=== PATIENT | female | born 1995 | race Caucasian/White ===

== ENCOUNTER 2016-09-30 23:05 | Outpatient (CLI) | payer OTHER ==
[~2016-09-30] VITALS: Ht 154.9 cm; Wt 89.0 kg
[~2016-09-30 23:05] MED LIST: FERR-18 PO; PREN-39 PO
[2016-09-30 23:37] VITALS: BP 110/62; PULSE 94; RESP 18; Ht 154.9 cm; Wt 89.0 kg
[2016-10-01 00:42] LABS: ADD UMIC YES; UR ASCORBIC ACID NEGATIVE (NEGATIVE); UR BACTERIA FEW /HPF (NONE SEEN); UR BILIRUBIN (Dip) NEGATIVE (NEGATIVE); UR BLOOD (Dip) NEGATIVE (NEGATIVE); UR CLARITY SLIGHTLY CLOUDY (CLEAR); UR COLOR YELLOW (YELLOW); UR GLUCOSE (Dip) NEGATIVE (NEGATIVE); UR KETONES (Dip) TRACE mg/dL (NEGATIVE); UR LEUKOCYTE ESTERASE (Dip) 2+ Leu/ul (NEGATIVE); UR MUCUS MODERATE /HPF (NONE SEEN); UR NITRITE (Dip) NEGATIVE (NEGATIVE); UR RBC 4 /HPF (0-5); UR SPECIFIC GRAVITY (Dip) 1.025 (1.003-1.030); UR SQUAMOUS EPITHELIAL CELL FEW /HPF (FEW); UR TOTAL PROTEIN (Dip) 1+ mg/dl (NEGATIVE); UR UROBILINOGEN (Dip) NEGATIVE (NEGATIVE)
--- NOTE | 2016-10-01 01:17 | PN ---
Triage Information Date/Time Weeks of Gestation 34+ weeks : 4 Para: 2 Diabetes: none Hypertention: none Objective Vital Signs Date Time Temp Pulse Resp B/P Pulse Ox O2 Delivery O2 Flow Rate FiO2 09/30/16 23:37 98.5 94 18 110/62 Room Air Heart Rate: 140's Contractions: < 5 Minutes Apart Exam Cervix Fingertip and on re-exam no cervical change Results/Medications Results 24 hrs Laboratory Tests Test 10/01/16 00:01 Urine Color YELLOW Urine Clarity SLIGHTLY CLOUDY A Urine pH 5.0 Urine Specific Fowler 1.025 Urine Ketones TRACE A Urine Nitrite NEGATIVE Urine Bilirubin NEGATIVE Urine Urobilinogen NEGATIVE Urine Leukocyte Esterase 2+ H Urine Microscopic RBC 4 Urine Microscopic WBC 6 H Urine Squamous Epithelial Cells FEW Urine Bacteria FEW A Urine Mucus MODERATE Urine Hemoglobin NEGATIVE Urine Glucose NEGATIVE Urine Total Protein 1+ H Assessment/Plan Mild contractions noted. No sign of labor. D/C home. Follow up in clinic in AM and have urine culture done in the clinic with Dr Palma. SILVIA LAZO MD Oct 01, 2016 01:16
--- NOTE | 2016-10-01 02:01 | TRIAGE ---
OB Triage Datetime Report Generated by CPN: 10/01/2016 02:01 Datetime: 10/01/2016 01:07 Stage of : OB Triage Vaginal Exam Dilatation (cms): 0.5 Exam By: DR DELSHAD Vaginal Bleeding: None Cervix, Consistency: Firm Cervix, Position: Posterior Datetime: 10/01/2016 01:00 Labor Evaluation Frequency: 3-4 Monitor Mode: External Duration (sec)2399: 60 Quality: Mild Pattern: Normal: <= 5 Contractions in 10 Minutes Resting Tone [place]: Relaxed Heart Rate FHR Baseline Rate: 155 Monitor Mode: External US FHR Baseline Changes: No Baseline Change Variability: Moderate 6-25 bpm Accelerations: 15X15 Decelerations: None Category: Category I Datetime: 10/01/2016 00:00 Labor Evaluation Frequency: 1-4 Monitor Mode: External Duration (sec)2399: 60-100 Quality: Mild Pattern: Normal: <= 5 Contractions in 10 Minutes Resting Tone [place]: Relaxed Heart Rate FHR Baseline Rate: 145 Monitor Mode: External US FHR Baseline Changes: No Baseline Change Variability: Moderate 6-25 bpm Accelerations: 15X15 Decelerations: None Category: Category I Datetime: 09/30/2016 23:58 Vaginal Exam Dilatation (cms): 0.5 Exam By: DR DELSHAD Vaginal Bleeding: None Cervix, Consistency: Firm Cervix, Position: Posterior Datetime: 09/30/2016 23:30 EGA: 34.2 Datetime: 09/30/2016 23:26 Vaginal Exam Dilatation (cms): 0.0 Effacement (%): 0 Station: -3 Exam By: Ryne GARCIA RN Vaginal Bleeding: None Cervix, Consistency: Firm Cervix, Position: Posterior Datetime: 09/30/2016 23:10 Stage of : OB Triage Assessment Type: Triage Time of Arrival: 09/30/2016 23:01 Arrived By: Wheelchair Arrived From: Home Chief Complaint: BACK PAIN VAGINAL PRESSURE Movement: Present Contractions: Irregular Time Contractions Began: 09/30/2016 17:00 Rupture of Membranes: Denies Vaginal Bleeding: None Vaginal Discharge: Denies Recent Sexual Intercouse: Denies Abdominal Trauma: Not Applicable Patient Complaints: None Time Provider Notified: 09/30/2016 23:45 Provider Notified: CHACHO Initial Plan: CALL RENY BUTTS Maternal Assessment Level of Consciousness: Fully Conscious DTR's/Clonus: DTRs 2+; No Clonus Headache: Denies Blurred Vision: No Respiratory Effort: Unlabored; Regular Rhythm; Equal Expansion Breath Sounds, Left: Clear and Equal Breath Sounds, Right: Clear and Equal Nausea/Vomiting: Denies RUQ Epigastric Pain: Denies Lower Extremities Edema: Bilateral Lower Extremities Degree: 1+ Upper Extremities Edema: None Degree: None Facial Edema: None Temperature Route: Oral Fall Risk Assessment History of Falling: (0) No Secondary Diagnosis: (0) No Ambulatory Aid: (0) Bedrest/Nurse Assist IV Therapy: (0) No Gait: (0) Normal/Bedrest/Immobile Mental Status: (0) Oriented to Own Ability Fall Score: 0 Fall Risk Score Definition: No Risk: No action required Monitor Mode: External Monitor Mode: External US Pain Assessment Pain Scale: 5 Pain Presence: Intermittent Pain Type: Contraction Pain Location: Abdomen; Back
== END 2016-10-01 01:07 | disposition home or self-care (01) ==
LOC: OBT 23:05 → L-D 23:05 → OBT 10-01 01:07
PROVIDERS: ATTEND Obstetrics & Gynecology
DX: O26.893 Other specified pregnancy related conditions, third trimester (principal); Z3A.34 34 weeks gestation of pregnancy
CPT/HCPCS: 81001; Z7500; G0463

== ENCOUNTER 2016-11-03 22:03 | Outpatient (CLI) | payer OTHER ==
[~2016-11-03] VITALS: Ht 157.5 cm; Wt 93.2 kg
[2016-11-03 22:32] VITALS: BP 124/72; PULSE 18; RESP 18; Ht 157.5 cm; Wt 93.2 kg
[2016-11-03 23:08] LABS: URINE BLOOD (Dip) POC Negative (NEGATIVE)
--- NOTE | 2016-11-04 00:43 | PN ---
Triage Information Date/Time November 04, 2016 Reason for visit: Uterine contractions Weeks of Gestation 39w 2d /Para 4/2 Diabetes: none Hypertention: none Additional information Pt reports pelvic pressure and back pain tonight. Her last baby was 3 years ago and she had a 12 hour labor.No bleeding or leaking. PMHx: none. PSHx: none. NKDA. Objective Vital Signs Date Time Temp Pulse Resp B/P Pulse Ox O2 Delivery O2 Flow Rate FiO2 11/03/16 22:32 97.8 18 18 124/72 Room Air Heart Rate: 130's Heart Rate Comments Accels to 160 bpm. No decels. Contractions: 6-10 Minutes Apart Exam 50%/FT/-3. Results/Medications Results 24 hrs Laboratory Tests Test 11/03/16 23:16 Bedside Urine pH (LAB) 6.5 Bedside Urine Protein (LAB) Negative Bedside Urine Glucose (UA) Negative Bedside Urine Ketones (LAB) Negative Bedside Urine Blood Negative Bedside Urine Nitrite (LAB) Negative Bedside Urine Leukocyte Esterase (L 1+ H Disposition: Discharge Assessment/Plan A: IUP at 39w 2d. False labor. P: D/C home. Labor precautions reviewed. MAMTA LIRA MD Nov 04, 2016 00:43
== END 2016-11-04 00:51 | disposition home or self-care (01) ==
LOC: OBT 22:03 → L-D 22:04 → OBT 11-04 00:51
PROVIDERS: ATTEND Obstetrics & Gynecology
DX: O62.9 Abnormality of forces of labor, unspecified (principal); Z3A.39 39 weeks gestation of pregnancy
CPT/HCPCS: 81003

== ENCOUNTER 2016-11-07 11:14 | Inpatient (IN) | payer OTHER ==
[~2016-11-07] VITALS: Ht 157.5 cm; Wt 92.0 kg
[2016-11-07 12:06] VITALS: BP 103/64; PULSE 95; RESP 18; Ht 157.5 cm; Wt 92.0 kg
--- NOTE | 2016-11-07 13:10 | RADRPT ---
PROCEDURE: OB ultrasound for biophysical profile CLINICAL INDICATION: Contractions TECHNIQUE: Multiple sonographic images of the pelvis were obtained. Transabdominal views of the g ravid uterus are available for review. The images were reviewed on a PACS workstation. COMPARISON: None FINDINGS: breathing movement = 2/2 tone = 2/2 motion = 2/2 RUPINDER = 2/2 RUPINDER = 9.1 cm Single live intrauterine with cardiac activity of 136 bpm. position is cephal ic. The placenta is anterior. IMPRESSION: 1. Single live intrauterine gestation. 2. Biophysical profile = 8/8. 3. RUPINDER = 9.1 cm. RPTAT: HH .Kay Castillo MD, MD Date Time Electronically viewed and signed by .Kay Castillo MD, on 11/07/2016 13:10 .G/
--- NOTE | 2016-11-07 13:12 | RADRPT ---
PROCEDURE: US OB. CLINICAL INDICATION: Contractions TECHNIQUE: Multiple sonographic images of the pelvis were obtained. Transabdominal imaging only w as performed. The images were reviewed on a PACS workstation. COMPARISON: OB ultrasound dated 03/2016 FINDINGS: There is a single live intrauterine gestation. Cardiac activity is present with 137 beats per minut e. position is cephalic. Measurements were made in order to determine age. The results are as follows: BPD = 8.86 cm HC = 32.47 cm AC = 35.28 cm FL = 7.04 cm. Estimated gestational age of approximately 37 weeks 0 days. The estimated date of delivery is 11/28/2016. The EFW = 3312 g, 28.6 %ile. The placenta is anterior. There is no evidence for an abruption or placenta previa. There are no adnexal masses. IMPRESSION: 1. Single live intrauterine gestation of approximately 37 weeks 0 days, by ultrasound criteria. 2. The estimated date of delivery is 11/28/2016. 3. The estimated weight is 3312 g, 28.6 %ile. RPTAT: HH .Kay Castillo MD, Date Time Electronically viewed and signed by .Kay Castillo MD, on 11/07/2016 13:12 .G/
[2016-11-07 15:49] LABS: ADD UMIC YES; UR ASCORBIC ACID NEGATIVE (NEGATIVE); UR BACTERIA FEW /HPF (NONE SEEN); UR BILIRUBIN (Dip) NEGATIVE (NEGATIVE); UR BLOOD (Dip) NEGATIVE (NEGATIVE); UR CLARITY CLEAR (CLEAR); UR COLOR YELLOW (YELLOW); UR GLUCOSE (Dip) NEGATIVE (NEGATIVE); UR KETONES (Dip) NEGATIVE (NEGATIVE); UR LEUKOCYTE ESTERASE (Dip) 3+ Leu/ul (NEGATIVE); UR MUCUS FEW /HPF (NONE SEEN); UR NITRITE (Dip) NEGATIVE (NEGATIVE); UR RBC 0 /HPF (0-5); UR SPECIFIC GRAVITY (Dip) 1.018 (1.003-1.030); UR SQUAMOUS EPITHELIAL CELL FEW /HPF (FEW); UR TOTAL PROTEIN (Dip) NEGATIVE (NEGATIVE); UR UROBILINOGEN (Dip) NEGATIVE (NEGATIVE)
[2016-11-07] MEDS ORDERED: OXYTOCIN 30 UNITS/LR 500 ML IV PRN (17:00)
[2016-11-07] MEDS ORDERED: OXYTOCIN 30 UNITS/LR 500 ML IV SCH ×2 (17:00)
[2016-11-07] MEDS ORDERED: METHYLERGONOVINE 0.2 MG INJ IM PRN (17:00)
[2016-11-07] MEDS ORDERED: MISOPROSTOL 200 MCG TAB PR PRN (17:00)
[2016-11-07] MEDS ORDERED: CARBOPROST 250 MCG INJ IM PRN (17:00)
[2016-11-07] MEDS ORDERED: BUTORPHANOL 2 MG INJ IV PRN (17:00)
[2016-11-07] MEDS ORDERED: MINERAL OIL LIGHT 10 ML VIAL TOP PRN (17:00)
[2016-11-07] MEDS ORDERED: LACTATED RINGER'S 1,000 ML IV PRN (17:00)
[2016-11-07] MEDS ORDERED: LIDOCAINE 1% (MPF) 30 ML INJ INJ PRN (17:00)
[2016-11-07 18:00] LABS: BASOPHILS % 0.2 % (0.0-2.0); EOSINOPHILS # 0.1 10^3/ul (0.0-0.5); EOSINOPHILS % 0.5 % (0.0-7.0); HEMATOCRIT 37.3 % (37.0-47.0); HEMOGLOBIN 12.6 g/dl (12.0-16.0); LYMPHOCYTES # 2.7 10^3/ul (0.8-2.9); LYMPHOCYTES % 20.5 % (15.0-51.0); MEAN CORPUSCULAR HEMOGLOBIN 29.7 pg (29.0-33.0); MEAN CORPUSCULAR HGB CONC 33.8 g/dl (32.0-37.0); MEAN PLATELET VOLUME 10.7 fl (7.4-10.4); MONOCYTE # 0.6 10^3/ul (0.3-0.9); MONOCYTES % 4.5 % (0.0-11.0); NEUTROPHILS % 73.8 % (39.0-77.0); PLATELET COUNT 284 10^3/UL (140-415); RED BLOOD COUNT 4.24 10^6/ul (4.20-5.40); RED CELL DISTRIBUTION WIDTH 13.1 % (11.5-14.5); WHITE BLOOD COUNT 13.3 10^3/ul (4.8-10.8)
[2016-11-07 18:16] LABS: INR 0.87; PROTIME 11.8 Sec (12.2-14.2); PT RATIO 0.9
[2016-11-07 18:17] LABS: PARTIAL THROMBOPLASTIN TIME 29.8 Sec (25.0-35.0)
--- NOTE | 2016-11-07 19:21 | HP ---
Date/Time of Note Date/Time of Note DATE: 11/07/16 TIME: 19:16 OB - History Hx of Present Free Text/Dictation Admitted on November 07 with chief complaint of labor pains, decreased movement, and spotting started a.m. of admission Chief Complaint: Spotting, uterine contractions, decreased movement Last Menstrual Period: Feb 13, 2016 Estimated Due Date: Nov 09, 2016 : 4 Para: 2 Care: Good Care Ultrasounds: Normal mid trimester US Obstetrical Complications: None Medical Complications: None Past Family/Social History * Past Medical, Surgical, Family and Obstetric Histories reviewed from chart. Blood Type: A+ Rubella: immune RPR/VDRL: Negative GBS Status: Negative HBsAG: Negative OB Admission Exam Vital Signs Vital Signs Vital Signs Date Time Temp Pulse Resp B/P Pulse Ox O2 Delivery O2 Flow Rate FiO2 11/07/16 12:06 98.2 95 18 103/64 Room Air Physical Exam HEENT: WNL Heart: Rhythm Normal Lungs: Clear, Equal Abdomen: WNL Extremities: Normal Reflexes: Normal Cervical Dilatation: 3cm Effacement: 75% Station: -3 Membranes: Intact Heart Rate: 130's Accelerations: Accelerations Present Decelerations: Early Decelerations Varibility: Moderate Contractions on Admission: < 5 Minutes Apart Date/Time Contractions Began: November 07 2016 Frequency of Contractions: Every for 5 minutes Duration: Over 60 seconds Intensity: Mild Last 72 hours Lab Results CBC & BMP 11/07/16 17:30 OB Assessment/Plan Other Assessment: Term gestation Liver pain Plan: Expectant Management Other plan: Proceed with spontaneous labor ELIJAH NASH MD Nov 07, 2016 19:21
[2016-11-07] MEDS: LACTATED RINGER'S 1,000 ML IV SCH ×2 (19:25→19:49)
[2016-11-07] MEDS ORDERED: FENTAnyl 2MCG/ML-ROPIV 0.2% 100 ML ONE (21:28)
[2016-11-07] MEDS ORDERED: NALOXONE (0.4 MG/ML) INJ IV PRN (22:30)
[2016-11-07] MEDS ORDERED: DIPHENHYDRAMINE 50 MG INJ IV PRN (22:30)
[2016-11-07] MEDS ORDERED: ONDANSETRON 4 MG INJ IV PRN (22:30)
[2016-11-08] MEDS: FENTAnyl 2MCG/ML-ROPIV 0.2% 100 ML BAG EPI SCH ×2 (04:31→10:30)
[2016-11-08] MEDS: LACTATED RINGER'S 1,000 ML IV SCH ×2 (06:16→10:11)
[2016-11-08] MEDS ORDERED: OXYTOCIN 30 UNITS/LR 500 ML IV SCH (10:30)
--- NOTE | 2016-11-08 14:32 | LDN ---
Date/Time of Note Date/Time of Note DATE: 11/08/16 TIME: 14:30 Delivery Summary Normal spontaneous vaginal delivery of a viable over intact perineum Weeks of Gestation 39+ Placenta Delivered: Spontaneously, Intact & Complete Meconium: none Episiotomy: No Perineal laceration: 0 Anesthesia type: Epidural Estimated blood loss: 200 Sponge & Needle done & correct: Yes All needle counts correct: Yes Any foreign bodies felt in the: No Problems: Infant Delivery Information Sex Sex: female Apgars 1 Minute: 9 5 Minute: 9 Suctioning Nose & mouth suctioned at venus: Yes Delee suction performed: No Umbilical Cord Umbilical cord with: 3 Vessels Cord presentations: no nuchal cord Mother & Baby Disposition Disposition Mom & Baby to Maternity; Good: Yes (Mother and baby were recovered in good condition) Mom transferred to: Other (Maternity) Baby to NICU: No ELIJAH NASH MD Nov 08, 2016 14:32
[2016-11-08] MEDS: LACTATED RINGER'S 1,000 ML IV* SCH ×2 (16:29→19:54)
[2016-11-08] MEDS ORDERED: OXYTOCIN 30 UNITS/LR 500 ML IV PRN (16:30)
[2016-11-08] MEDS ORDERED: WITCH HAZEL/GLYCERIN PAD PR PRN (16:30)
[2016-11-08] MEDS ORDERED: LANOLIN 7 GM TUBE TOP PRN (16:30)
[2016-11-08] MEDS ORDERED: DIBUCAINE 1% 30 GM OINT PR PRN (16:30)
[2016-11-08] MEDS ORDERED: BENZOCAINE 20% 56 ML SPRAY TOP PRN (16:30)
[2016-11-08] MEDS ORDERED: METHYLERGONOVINE 0.2 MG INJ IM PRN (16:30)
[2016-11-08] MEDS ORDERED: MISOPROSTOL 200 MCG TAB PR PRN (16:30)
[2016-11-08] MEDS ORDERED: HYDROCODONE/APAP (5/325) TAB PO PRN ×2 (16:30)
[2016-11-08] MEDS ORDERED: CARBOPROST 250 MCG INJ IM PRN (16:30)
[2016-11-08] MEDS ORDERED: ZOLPIDEM 5 MG TAB PO PRN (16:30)
[2016-11-08 17:15] VITALS: BP 132/69; PULSE 91; RESP 20
[2016-11-08] MEDS: IBUPROFEN 600 MG TAB PO SCH ×2 (17:43→23:30)
[2016-11-08] MEDS: CEPHALEXIN 500 MG CAP PO SCH ×2 (17:43→23:30)
[2016-11-08 20:00] VITALS: BP 111/63; PULSE 102; RESP 18
[2016-11-08] MEDS: MAGNESIUM HYDROXIDE 30ML CUP PO SCH (20:30)
[2016-11-08] MEDS: SENNA/DOCUSATE NA (8.6MG/50MG) TAB PO SCH (20:30)
[2016-11-09] VITALS: BP 108/65; PULSE 88; RESP 18
[2016-11-09 04:00] VITALS: BP 102/57; PULSE 85; RESP 18
[2016-11-09] MEDS: IBUPROFEN 600 MG TAB PO SCH ×3 (05:33→17:17)
[2016-11-09] MEDS: CEPHALEXIN 500 MG CAP PO SCH ×3 (05:33→17:17)
[2016-11-09 07:50] VITALS: BP 113/59; PULSE 73; RESP 16
[2016-11-09] MEDS: SENNA/DOCUSATE NA (8.6MG/50MG) TAB PO SCH ×2 (08:31→20:51)
[2016-11-09] MEDS: MAGNESIUM HYDROXIDE 30ML CUP PO SCH ×2 (08:31→20:50)
[2016-11-09 09:15] LABS: BASOPHILS % 0.2 % (0.0-2.0); EOSINOPHILS # 0.1 10^3/ul (0.0-0.5); HEMATOCRIT 32.3 % (37.0-47.0); HEMOGLOBIN 10.6 g/dl (12.0-16.0); LYMPHOCYTES # 2.8 10^3/ul (0.8-2.9); LYMPHOCYTES % 21.2 % (15.0-51.0); MEAN CORPUSCULAR HEMOGLOBIN 29.7 pg (29.0-33.0); MEAN CORPUSCULAR HGB CONC 32.8 g/dl (32.0-37.0); MEAN CORPUSCULAR VOLUME 90.5 fl (82.0-101.0); MEAN PLATELET VOLUME 10.7 fl (7.4-10.4); MONOCYTE # 0.6 10^3/ul (0.3-0.9); MONOCYTES % 4.7 % (0.0-11.0); NEUTROPHILS % 72.4 % (39.0-77.0); PLATELET COUNT 231 10^3/UL (140-415); RED BLOOD COUNT 3.57 10^6/ul (4.20-5.40); RED CELL DISTRIBUTION WIDTH 13.1 % (11.5-14.5); WHITE BLOOD COUNT 13.2 10^3/ul (4.8-10.8)
[2016-11-09 15:38] VITALS: BP 108/75; PULSE 80; RESP 16
--- NOTE | 2016-11-09 18:31 | DS ---
Date/Time of Note Date/Time of Note Home today or next day DATE: 11/09/16 TIME: 18:30 Obstetrical Discharge Record Final Diagnosis Final Diagnosis: Term delivered Other Final Diagnosis Status post vaginal delivery Vaginal Delivery Obstetrical Delivery: Spontaneous Complications Augmentation: Yes Condition on Discharge Physical Assessment Last Vitals: See nurse's note Voiding: Yes Bowel Movement: Yes Breast: Soft, non-tender, Filling Fundus: Firm Abdomen and Incision: Abdomen is soft and nontender and bowel sounds are present Episiotomy: Not applicable Perineum is clean Calf Tenderness: No Patient Condition: Good ELIJAH NASH MD Nov 09, 2016 18:31
[2016-11-09] MEDS ORDERED: IBUP-1542 PO (18:33)
--- NOTE | 2016-11-09 18:33 | PD.PPDC ---
MEDICAL ANTHROPOLOGY DIRECTOR Discharge Instruction Provider Information Physician Information 21-year-old female had vaginal delivery at term Diagnosis Final Diagnosis: Status post vaginal delivery Condition Patient Condition: Good Diet Diet: Resume Regular Diet Activity/Restrictions Activity: Normal Activity May Shower Restrictions: Nothing in the Vagina Return to Work or School: Dec 24, 2016 Follow-up Follow-up with Physician: 4, Week/Weeks (In clinic for follow-up) Return to clinic for OB Instructions: Breast Tenderness Depression Comment: Pelvic rest 6 weeks Referred to clinic in 4 weeks for contraception if so desired ELIJAH NASH MD Nov 09, 2016 18:33
[2016-11-09 19:52] VITALS: BP 120/80; PULSE 77; RESP 18
[2016-11-10 04:00] VITALS: BP 113/73; PULSE 61; RESP 18
[2016-11-10] MEDS: IBUPROFEN 600 MG TAB PO SCH ×3 (06:43→11:18)
[2016-11-10] MEDS: CEPHALEXIN 500 MG CAP PO SCH ×3 (06:43→11:19)
[2016-11-10 07:30] VITALS: BP 117/75; PULSE 62; RESP 19
[2016-11-10] MEDS: SENNA/DOCUSATE NA (8.6MG/50MG) TAB PO SCH (09:00)
[2016-11-10] MEDS ORDERED: VARICELLA VACCINE LIVE/PF 1,350 UNIT/0.5 ML ML SC* ONE (09:00)
[2016-11-10] MEDS ORDERED: DIPHTH/TET/ACEL PERTUSS (ADULT) 0.5 ML VIAL IM* ONE (09:00)
[2016-11-10] MEDS ORDERED: MEASLES,MUMPS,RUBELLA VACCINE INJ SC* ONE (09:00)
[2016-11-10] MEDS: MAGNESIUM HYDROXIDE 30ML CUP PO SCH (09:00)
== END 2016-11-10 14:30 | disposition home or self-care (01) | DRG 775 ==
LOC: L-D 11:14 → OBT 11:14 → L-D 17:00 → PP1 11-08 16:53
PROVIDERS: ADMIT Obstetrics & Gynecology; ATTEND Obstetrics & Gynecology
PROC: 10E0XZZ Delivery of Products of Conception, External Approach (ICD-10-PCS; principal; 2016-11-08)
DX: O36.8130 Decreased fetal movements, third trimester, not applicable or unspecified (principal); Z37.0 Single live birth; Z3A.39 39 weeks gestation of pregnancy
CPT/HCPCS: 62319; 76815; 76818; 81001; 85025; 85610; 85730; 86592; 86900; 86901; 87340; G0463; J2590; J3010; J7120

== ENCOUNTER 2018-01-24 20:09 | Inpatient (IN) | END 2018-01-26 13:05 | disposition home or self-care (01) | DRG 833 ==

== ENCOUNTER 2018-02-03 16:30 | Inpatient (IN) | END 2018-02-04 16:54 | disposition home or self-care (01) | DRG 833 ==

== ENCOUNTER 2018-02-08 16:30 | Inpatient (IN) | END 2018-02-09 12:10 | disposition home or self-care (01) | DRG 833 ==

== ENCOUNTER 2018-02-20 17:40 | Inpatient (IN) | END 2018-02-24 12:54 | disposition home or self-care (01) | DRG 806 ==